=== PATIENT | male | born 1995 | race African-American/Black ===

== ENCOUNTER 2018-12-08 05:41 | Emergency (ER) | payer SELFPAY ==
[~2018-12-08] VITALS: Ht 185.4 cm; Wt 68.5 kg
[2018-12-08] MEDS ORDERED: LIDOCAINE 1% (LOCAL ANESTH.) PF 5ml SDV ID ONE (07:15)
[2018-12-08] MEDS ORDERED: BACITRACIN TOP OINT 1 UD PKG TOP ONE (07:15)
[2018-12-08] MEDS ORDERED: LIDOCAINE 1% HCL (LOCAL ANESTH.) INJ 20ML MDV ONE (07:32)
[2018-12-08 07:39] VITALS: BP 145/74
== END 2018-12-08 08:20 | disposition home or self-care (01) ==
LOC: ER 05:41
DX: S61.012A Laceration without foreign body of left thumb without damage to nail, initial encounter (principal); W25.XXXA Contact with sharp glass, initial encounter; Y93.G1 Activity, food preparation and clean up; Y92.090 Kitchen in other non-institutional residence as the place of occurrence of the external cause; Y99.8 Other external cause status
CPT/HCPCS: 12001; 99283; J2001